=== PATIENT | male | born 1960 | race African-American/Black ===

== ENCOUNTER 2021-10-14 01:42 | Inpatient (IN) | payer OTHER, SELFPAY ==
[2021-10-14] VITALS (24 sets, daily range): BP systolic 138–207; BP diastolic 85–136; PULSE 10–106; RESP 16–22; TEMP 36.3–36.9; O2SAT 63–100; BMI 29.7; BMI 30.8
--- NOTE | ~2021-10-14 | CT_ITS ---
EXAMINATION: CT brain wo con EXAM DATE: 10/14/2021 02:38 INDICATION: altered mental status . TECHNIQUE: Spiral CT of the head was performed without contrast. Axial, coronal and sagittal images were reviewed. The dose-length product (DLP) for this examination was 681.00 mGy-cm. The exposure w as tailored according to patient size, and iterative reconstruction (ASIR) was used as additional dos e reduction technique. There is no prior study for comparison. FINDINGS: There is no acute intraparenchymal hemorrhage. No evidence of intraparenchymal brain mass lesion. Small old left frontal lobe cortical infarction. Small old right parietal lobe infarction. T here is hypodensity in the right caudate head, internal capsule, age indeterminate lacunar infarction . Small old left internal capsular lacunar infarction. There is moderate periventricular and subcort ical hypodensity, nonspecific but probably related to small vessel ischemic disease. There is moder ate prominence of the sulci and ventricles related to cerebral atrophy. There is intracranial carot id arteriosclerosis. There are no extra-axial collections. There is no mass effect or midline shift . The orbits are unremarkable. Soft tissue is unremarkable. The visualized sinuses and mastoid air cells are well aerated. IMPRESSION: 1. Right caudate head, internal capsular age-indeterminate infarction. 2. Small old infarctions. 3. Chronic age related findings. Reviewed, dictated and finalized at location A. OYMENT COUNSELOR
--- NOTE | ~2021-10-14 | US_ITS ---
EXAMINATION: US carotid duplex BI DATE: 10/14/2021 08:56 INDICATION: Right caudate nucleus infarct. TECHNIQUE: Grayscale, color Doppler, and pulsed Doppler images of the cervical carotid arteries were obtained. The degree of vessel stenosis is placed in one of the following categories: normal, <50%, 5 0-69%, >=70% but less than near-occlusion, near-occlusion, or total occlusion. Note that percent sten osis relative to normal distal artery lumen diameter is indirectly measured from velocity measurement s as described by Levi, et al. Radiology 2003; 229:340-346. COMPARISON: None. FINDINGS: RIGHT: The right common carotid artery (CCA) peak systolic velocity (PSV) is 86 cm/s. The right internal car otid artery (ICA) PSV is 63 cm/s. The right ICA end-diastolic velocity (EDV) is 25 cm/s. The right IC A/CCA PSV ratio is 0.7. Grayscale and color Doppler images yield an estimate of <50% diameter reducti on from plaque in the ICA. There is antegrade flow in the right vertebral artery. LEFT: The left CCA PSV is 108 cm/s. The left ICA PSV is 85 cm/s. The left ICA EDV is 29 cm/s. The left ICA/ CCA PSV ratio is 0.8. Grayscale and color Doppler images yield an estimate of <50% diameter reduction from plaque in the ICA. There is antegrade flow in the left vertebral artery. IMPRESSION: 1. <50% stenosis in the right internal carotid artery. 2. <50% stenosis in the left internal carotid artery. Reviewed, dictated and finalized at location A. [employer]
--- NOTE | ~2021-10-14 | MR_ITS ---
EXAMINATION: MR brain/brain stem wo/w con EXAM DATE: 10/14/2021 14:12 INDICATION: altered mental status, hx of stroke. TECHNIQUE: Magnetic resonance imaging (MRI) of the brain/brain stem obtained without contrast. Sagit catalina T1, axial diffusion, gradient echo (T2*), T1, T2, FLAIR sequences obtained. Patient was then inj ected with 17 cc intravenous Multihance contrast. Axial and coronal postcontrast T1 weighted sequence s obtained. Correlation is made to head CT from earlier same date. FINDINGS: Small to moderate-sized acute left frontal lobe infarction with some other scattered smalle r middle cerebral artery distribution infarctions. No infarctions in other distributions. There is an old right parietal lobe infarction. Mild to moderate microangiopathy and cerebral atrophy. No acute hemorrhage, extra-axial collections, brain mass or obstructive hydrocephalus. Small old right caudate head, internal capsular lacunar infarction. Flow voids are seen in the cerebral arteries on the T2 w eighted sequences consistent with their expected patency. Mild maxillary and ethmoid mucoperiosteal t hickening. IMPRESSION: 1. Left frontal lobe small to moderate sized acute infarction with some other scattered smaller MCA distribution acute infarctions. 2. Old small infarctions. 3. Age-related findings. Reviewed, dictated and finalized at location A. OL STANDARDS COACH
--- NOTE | ~2021-10-14 | XR_ITS ---
EXAMINATION: XR chest 1V portable EXAM DATE: 10/14/2021 02:39 INDICATION: cough, patient not acting like self x5 days not taking meds. TECHNIQUE: Portable AP frontal chest x-ray was obtained. There is no prior study for comparison. FINDINGS: The lungs are clear. There are no pleural effusions. Cardiomediastinal silhouette is norm al. There is no pneumothorax suspected. The bones and soft tissues are unremarkable. IMPRESSION: No acute cardiopulmonary findings. Reviewed, dictated and finalized at location A. ALL PROFESSIONAL
--- NOTE | 2021-10-14 02:08 | PC.NURSE ---
son reports he drinks every day but has not drank anything today
--- NOTE | 2021-10-14 02:21 | ECG_ITS ---
Measurements Intervals [place] Rate: 76 P: 38 WI: 136 QRS: -3 QRSD: 97 T: 30 QT: 388 QTc: 437 Interpretive Statements SINUS RHYTHM VOLTAGE CRITERIA FOR LVH PEAKED T WAVES- CONSIDER HYPERKALEMIA OR ISCHEMIA BASELINE ARTIFACT- II, V2-V6 ABNORMAL ECG Electronically Signed On 10-14-2021 6:52:37 PROJECT CONTROLS SPECIALIST by Glenn Francois D.O.
--- NOTE | 2021-10-14 02:27 | PC.NURSE ---
pt to ct
[2021-10-14] MEDS: SODIUM CHLORIDE 0.9% IV 1,000 ML 999 ML IV CONT (02:57)
[2021-10-14 03:05] LABS: Basophils Percent Auto 0.6 % (0.2-1.2); Eosinophils Absolute Auto 0.1 K/mm3 (0-0.3); Hematocrit 47.5 % (42.0-52.0); Hemoglobin 16.1 g/dL (14.0-18.0); Immature Granulocyte Absolute 0.05 K/mm3 (0.00-0.031); Immature Granulocyte Percent A 0.7 % (0-0.5); Lymphocytes Absolute Auto 1.84 K/mm3 (0.9-3.2); Lymphocytes Percent Auto 26.1 % (18.3-44.2); Mean Corpuscular HGB Conc 33.9 g/dl (32-36); Mean Corpuscular Hemoglobin 32.4 pg (26-34); Mean Corpuscular Volume 95.6 fl (80-100); Mean Platelet Volume 10.8 fl (7.4-10.4); Monocytes Absolute Auto 0.8 K/mm3 (0.1-0.6); Monocytes Percent Auto 11.1 % (2.6-8.5); Neutrophils Absolute Auto 4.2 K/mm3 (1.3-6.7); Neutrophils Percent Auto 59.5 % (45.5-73.1); Platelet Count Result 167 k/mm3 (150-375); Red Blood Count 4.97 M/mm3 (4.6-6.20); Red Cell Distribution Width 12.5 % (11.5-14.5)
[2021-10-14 03:11] LABS: Add Urine Microscopic? YES; Appearance Urine Clear (Clear); Bilirubin Urine Negative (Negative); Blood Urine Negative (Negative); Color Urine Yellow (Yellow); Glucose Urine UA Negative (Negative); Ketones Urine Trace mg/dL (Negative); Leukocyte Esterase Ur Trace LEU/UL (Negative); Mucus Urine Rare /lpf; Nitrate Urine Negative (Negative); Protein Urine Negative (Negative); RBC Urine 0-2 /hpf (0-2); Specific Grav Ur 1.023 (1.001-1.035)
[2021-10-14 03:15] LABS: Alanine Aminotransferase 14 U/L (4-50); Albumin Level 4.4 g/dL (3.5-5.1); Alkaline Phosphatase 60 U/L (38-126); Anion Gap 9 mmol/L (8-16); Aspartate Amino Transferase 21 U/L (17-59); Blood Urea Nitrogen 13 mg/dL (9-20); Calcium 9.7 mg/dL (8.4-10.2); Carbon Dioxide 26 mmol/L (22-30); Chloride 100 mmol/L (98-107); Estimated CRCL calculation 66 ml/min; Estimated Glomerular Filt Rate > 60; Glucose 106 mg/dL (65-110); Lactic Acid Reflex 2.1 mmol/L (0.7-2.1); Lipase 45 U/L (23-300); Prothrombin Time 12.7 Seconds (11.1-14.7); Sodium 135 mmol/L (137-145)
[2021-10-14 03:38] LABS: Ethanol < 10 mg/dL (<10); NT Pro B Type Natriuretic Pept 263 pg/mL (5-100); Troponin I < 0.012 ng/mL (0.000-0.034)
[2021-10-14 03:42] LABS: SARS-CoV-2 RNA PCR Positive
[2021-10-14 03:44] LABS: Amphetamine Screen Urine Negative (Negative); Barbiturate Screen Urine Negative (Negative); Benzodiazepines Screen Urine Negative (Negative); Cannabinoid Screen Urine Negative (Negative); Cocaine Screen Urine Negative (Negative); Methadone Screen Urine Negative (Negative); Opiate Screen Urine Negative (Negative); Phencyclidine Screen Urine Negative (Negative)
[2021-10-14] MEDS: hydrALAZINE HCL 20 MG/ML VIAL 10 MG IV PUSH (03:51)
--- NOTE | 2021-10-14 04:33 | ED.GENADULT ---
HPI - General Adult General Chief complaint: Unspecified Stated complaint: wants blood levels checked Time Seen by Provider: 10/14/21 02:05 History of Present Illness HPI narrative: Patient is a 61-year-old gentleman who presents the emergency department with chief complaint of altered mental status. Patient has history of hypertension and has been living with a friend since he lost his house a few months ago. Patient has been apparently noncompliant with his medications and does report history of stroke. Patient really is not able to provide much history due to not remembering things. Patient denies any pain denies falls reports that he has not had a fever chills nausea or vomiting or chest pain. The family reports that they feel as though he is not taking care of himself and they're very concerned for his wellbeing and brought him to the emergency department tonight. The family does not have a list of his medications they're unsure where he receives his primary care at. Related Data Allergies Allergy/AdvReac Type Severity Reaction Status Date / Time No Known Allergies Allergy Verified 10/14/21 01:50 Review of Systems Review of Systems: A 10 system review of systems was completed on the patient and is negative except for what is stated in the HPI. Nursing and ancillary documentation was reviewed. PMFSH Comments Hypertension, CVA Exam Narrative: GENERAL: Well-appearing, well-nourished, and in no acute distress. HEAD: Normocephalic, atraumatic. EYES: PERRLA and EOMI. ENT: Nares clear, no rhinorrhea or epistaxis. Mucous membranes moist. NECK: Supple. CHEST: Clear to auscultation. No respiratory distress. HEART: Regular rate and rhythm. No murmur heard. Normal peripheral pulses. ABDOMEN: Soft, nontender, nondistended, normal active bowel sounds. EXTREMITIES: Normal range of motion. No edema. SKIN: Warm, dry, no rash. NEURO: No focal deficits. Alert and oriented x2, somewhat confused. PSYCH: Normal mood and affect. Course Course Emergency Course: CT head shows age-indeterminate hypodensity in the right caudate head also there is left frontal lobe encephalomalacia Laboratory studies showed the patient was positive for COVID-19 also his blood pressure was moderately elevated the patient has been given hydralazine in the emergency department to help regulate his blood pressure. Vital Signs Vital signs: Vital Signs Temperature 36.4 C 10/14/21 01:45 Pulse Rate 77 10/14/21 01:45 Respiratory Rate 18 10/14/21 01:45 Blood Pressure 196/101 H 10/14/21 01:45 Pulse Oximetry 100 10/14/21 01:45 Temperature 36.4 C 10/14/21 01:45 Pulse Rate 84 10/14/21 03:50 Respiratory Rate 20 10/14/21 03:50 Blood Pressure 207/135 H 10/14/21 03:50 Pulse Oximetry 95 10/14/21 03:28 Medical Decision Making Vital Signs Vital Signs: Vital Signs Temperature 36.4 C 10/14/21 01:45 Pulse Rate 77 10/14/21 01:45 Respiratory Rate 18 10/14/21 01:45 Blood Pressure 196/101 H 10/14/21 01:45 Pulse Oximetry 100 10/14/21 01:45 Temperature 36.4 C 10/14/21 01:45 Pulse Rate 84 10/14/21 03:50 Respiratory Rate 20 10/14/21 03:50 Blood Pressure 207/135 H 10/14/21 03:50 Pulse Oximetry 95 10/14/21 03:28 Lab Data Result diagrams: 10/14/21 02:53 10/14/21 02:53 Labs: Lab Results 10/14/21 10/14/21 10/14/21 Range/Units 02:53 02:53 02:53 WBC 7.0 (4.5-10.0) K/mm3 RBC 4.97 (4.6-6.20) M/mm3 Hgb 16.1 (14.0-18.0) g/dL Hct 47.5 (42.0-52.0) % MCV 95.6 (80-100) fl MCH 32.4 (26-34) pg MCHC 33.9 (32-36) g/dl RDW 12.5 (11.5-14.5) % Plt Count 167 (150-375) k/mm3 MPV 10.8 H (7.4-10.4) fl Immature Gran % (Auto) 0.7 H (0-0.5) % Neut % (Auto) 59.5 (45.5-73.1) % Lymph % (Auto) 26.1 (18.3-44.2) % Cocke % (Auto) 11.1 H (2.6-8.5) % Eos % (Auto) 2.0 (0-4.4) % Baso % (Auto) 0.6 (0.2-1.2) % Lymph # (
[2021-10-14] MEDS: hydrALAZINE HCL 20 MG/ML VIAL IV PUSH (05:05)
[2021-10-14 06:02] LABS: Reflex Lactic Acid Yes or No Add Lactic
[2021-10-14 06:48] LABS: Troponin I < 0.012 ng/mL (0.000-0.034)
[2021-10-14 07:58] LABS: Lactic Acid 1.5 mmol/L (0.7-2.1)
--- NOTE | 2021-10-14 08:40 | PC.NURSE ---
UNABLE TO REACH PT'S SON CALVIN DAMON JR FOR MRI SCREENING QUESTIONS. DEMARCUS DEVLIN HOSPITALIST MADE AWARE AND WILL ATTEMPT TO MAKE SOME CALLS.
--- NOTE | 2021-10-14 09:16 | PM.IMHP ---
H&P: HPI History of Present Illness Date/Time: 10/14/21 09:16 Chief Complaint: AMS Narrative: Date of service: 10/14/2021 Jean Pierre Fitch Sr is a 61-year-old male with no obtainable medical history who presented to the emergency department early this morning brought in by his sister who states that he had not been acting right and had increased confusion for the past 5 days. On my encounter the patient is alone and not really able to provide any history. When I assumed brought him into the hospital he stated ?my body was struck by something.? When I asked what he was struck by he responded ?yeah.? He is oriented to self only. Reports he is at [facility], states the year is 1986 and [place] is the president. On presentation to the emergency department, his blood pressure was elevated at 196/100, additional vital signs are stable, CBC and BMP unremarkable, urine drug screen negative, alcohol level negative, and he was found to be positive for COVID-19. I have attempted to contact the patients family for further information regarding the patient's past medical history and baseline mental status several times. Contact number listed does not accept messages. Will continue to attempt to make contact. Patient is being admitted to the hospitalist service for observation. Supervising physician for this history and physical is Dr. John Noyola. Review of Systems Review of Systems: Review of systems limited given patient's mental status. He denies chest pain, shortness of, abdominal pain, nausea, vomiting, weakness, fever, chills, dysuria. He reports he walks independently and has not had any issues with ambulation. [facility] Social History Social History (Updated 10/14/21 @ 10:33 by Barbara Sanz PA-C) Social History: Patient unable to state emergency contact or surrogate decision maker. Wishes to be full code. Meds Home Medications and Allergies Allergies Allergy/AdvReac Type Severity Reaction Status Date / Time No Known Allergies Allergy Verified 10/14/21 01:50 Vital Signs Vital Signs - 24 hr 10/14/21 01:45 10/14/21 02:04 10/14/21 02:09 Temperature 97.6 F Pulse Rate 77 85 10 L Respiratory Rate 18 18 18 Blood Pressure 196/101 H 197/125 H 197/125 H Pulse Oximetry 100 100 100 10/14/21 03:05 10/14/21 03:06 10/14/21 03:28 Temperature Pulse Rate 81 81 Respiratory Rate 16 Blood Pressure 202/117 H Pulse Oximetry 95 10/14/21 03:50 10/14/21 05:04 10/14/21 05:54 Temperature Pulse Rate 84 93 101 H Respiratory Rate 20 22 H 20 Blood Pressure 207/135 H 197/136 H 172/100 H Pulse Oximetry 100 100 10/14/21 07:01 Temperature Pulse Rate 106 H Respiratory Rate 20 Blood Pressure 177/98 H Pulse Oximetry 100 Exam Narrative: Mr. Fitch is a well-nourished, chronically ill-appearing 61-year-old male who is lying supine in bed. He appears comfortable and is in NARD. Neuro: awake, alert and oriented to self only, speech is soft but clear, no focal neuro deficits noted, able to follow commands HEENMT: normocephalic, atraumatic, EOMI, bilateral scleral hemorrhage Neck: supple, no lymphadenopathy Respiratory: clear to auscultation bilaterally, nonlabored breathing Cardio: regular rate, regular rhythm with S1-S2 Abdomen: nondistended, normoactive bowel sounds, soft, nontender to palpation Extremities: no edema, erythema, or tenderness to palpation, DP pulses 2+ bilaterally Skin: no rashes or lesions, warm and dry Psych: Cooperative, confused, judgment and insight poor H&P: Results Labs Labs: Short CBC 10/14/21 Range/Units 02:53 WBC 7.0 (4.5-10.0) K/mm3 Hgb 16.1 (14.0-18.0) g/dL Hct 47.5 (42.0-52.0) % Plt Count 167 (150-375) k/mm3 [facility] 10/14/21 02:53 Sodium 135 L Potassium 5.0 Chloride 100 Carbon Dioxide 26 BUN 13 Creatinine 1.10 Glucose 106 Calcium 9.7 Cardiac Enzymes 10/14/21 10/14/21 Range/Units 02:53 06:07
[2021-10-14] MEDS: amLODIPine BESYLATE 5 MG TABLET PO (12:11)
[2021-10-14] MEDS: FAMOTIDINE 20 MG TABLET PO ×2 (12:11→21:13)
--- NOTE | 2021-10-14 13:29 | PC.NURSE ---
PT TO MRI FOR EXAM. QUESTIONNAIRE CONSENT WAS OBTAINED BY PHONE FROM CALVIN DAMON JR WITH 2 RN'S COSIGNING THE FORM.
[2021-10-15] VITALS (8 sets, daily range): BP systolic 121–143; BP diastolic 72–84; PULSE 63–92; RESP 16–20; TEMP 36.1–37; O2SAT 100
[2021-10-15 05:27] LABS: Hematocrit 43.7 % (42.0-52.0); Hemoglobin 15.2 g/dL (14.0-18.0); Mean Corpuscular HGB Conc 34.8 g/dl (32-36); Mean Corpuscular Hemoglobin 32.3 pg (26-34); Mean Corpuscular Volume 92.8 fl (80-100); Mean Platelet Volume 11.4 fl (7.4-10.4); Platelet Count Result 173 k/mm3 (150-375); Red Blood Count 4.71 M/mm3 (4.6-6.20); Red Cell Distribution Width 12.3 % (11.5-14.5)
[2021-10-15 05:47] LABS: Alanine Aminotransferase 12 U/L (4-50); Albumin Level 3.5 g/dL (3.5-5.1); Alkaline Phosphatase 41 U/L (38-126); Anion Gap 6 mmol/L (8-16); Aspartate Amino Transferase 22 U/L (17-59); Bilirubin,Total 0.9 mg/dL (0.2-1.3); Blood Urea Nitrogen 12 mg/dL (9-20); CRP 0.7 mg/dL (<1.0); Calcium 8.6 mg/dL (8.4-10.2); Carbon Dioxide 21 mmol/L (22-30); Chloride 105 mmol/L (98-107); Estimated CRCL calculation 73 ml/min; Estimated Glomerular Filt Rate > 60; Glucose 121 mg/dL (65-110); Potassium 3.7 mmol/L (3.4-5.0); Sodium 132 mmol/L (137-145)
--- NOTE | 2021-10-15 06:00 | ECHO_ITS ---
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 Strain analysis performed. Summary 1. Complete two-dimensional, color flow and Doppler transthoracic echocardiogram is performed. 2. Left ventricular chamber dimension is normal. 3. Left ventricular systolic function is normal, estimated at 60-65%. 4. There is moderately increased left ventricular wall thickness. 5. The left ventricular diastolic function is grade I diastolic dysfunction. 6. E/e' 7 is not elevated. 7. Global longitudinal strain is abnormal at -10.2%. Left Ventricle E/e' 7 is not elevated. Global longitudinal strain is abnormal at -10.2%. Left ventricular chamber dimension is normal. Left ventricular systolic function is normal, estimated at 60-65%. There is moderately increased left ventricular wall thickness. The left ventricular diastolic function is grade I diastolic dysfunction. Right Ventricle Right ventricular systolic function is normal with normal TAPSE 2.1 cm. Right ventricular chamber dimension is normal. Left Atria Left atrial chamber dimension is normal. Right Atria Right atrial chamber dimension is normal. Aortic Valve The aortic valve is trileaflet. There is no aortic valve stenosis. There is no aortic valve regurgitation. Pulmonic Valve There is no pulmonic regurgitation. Mitral Valve There is no mitral valve stenosis. There is no mitral valve regurgitation. Tricuspid Valve There is no tricuspid valve regurgitation. Pericardium/Pleural There is no pericardial effusion. Inferior Vena Cava Normal inferior vena cava with >50% collapse upon inspiration consistent with normal right atrial pressure, 5 mmHg. Aorta The aortic root size at the sinus of Valsalva is normal. Left Ventricular Outflow Tract Name Value Normal LVOT 2D LVOT Diameter 2.2 cm LVOT Doppler LVOT Peak Gradient 6 mmHg LVOT Mean Gradient 3 mmHg LVOT VTI 21 cm LVOT VTI/AV VTI Ratio 1.0 LVOT Stroke Volume 83 ml LVOT CO 6.7 l/min LVOT CI 3.3 l/min/m2 Mitral Valve Name Value Normal MV Doppler
[2021-10-15] MEDS: ASPIRIN 325 MG TABLET PO (09:18)
[2021-10-15] MEDS: FAMOTIDINE 20 MG TABLET PO ×2 (09:18→21:12)
[2021-10-15] MEDS: amLODIPine BESYLATE 5 MG TABLET 10 MG PO (09:18)
--- NOTE | 2021-10-15 09:55 | WPDNEURCNPN ---
Consult date: 10/15/21 HPI: Jean Pierre Fitch Sr. is a 61 year old male admitted to the hospital through the emergency room for the complaints of not acting right and increasing confusion over the last 5 days and specific statement by the patient to the initial physician my body was struck by something he was oriented to self only was oriented to 2 [facility] and 1984 year and the [place] being the president blood pressure being 196/100 routine screening was negative but positive for COVID-19 Review of Systems Review of Systems: All systems reviewed & are unremarkable except as noted in HPI and below PMFSH Social History Social History Social History: Patient unable to state emergency contact or surrogate decision maker. Wishes to be full code. Smoking packs per day: 2 Smoking cigarettes per day: 40.0 Years smoked: 45 Smoking pack-years: 90.00 Smoking status: Current every day smoker Tobacco type: cigarettes Alcohol intake: current Drinks per week: 21 Substance use: current Substance use type: marijuana Spiritual care concerns: No Meds Home Medications and Allergies Home Medications Medication Instructions Recorded Confirmed Type No Home Medications 10/14/21 10/14/21 History Allergies Allergy/AdvReac Type Severity Reaction Status Date / Time No Known Allergies Allergy Verified 10/14/21 01:50 Vital Signs Vital Signs - 24 hr 10/14/21 11:00 10/14/21 12:56 10/14/21 13:40 Temperature Pulse Rate 76 79 80 Respiratory Rate 20 18 16 Blood Pressure 145/98 H 169/111 H 169/102 H Pulse Oximetry 98 100 100 10/14/21 14:30 10/14/21 16:00 10/14/21 18:00 Temperature 36.3 C L 36.8 C Pulse Rate 82 71 76 Respiratory Rate 20 18 Blood Pressure 167/108 H 181/103 H Pulse Oximetry 100 100 10/14/21 20:00 10/14/21 22:00 10/15/21 00:00 Temperature 36.9 C 36.1 C L Pulse Rate 72 76 73 Respiratory Rate 18 16 Blood Pressure 138/85 143/84 H Pulse Oximetry 100 100 10/15/21 02:00 10/15/21 04:00 10/15/21 06:00 Temperature 36.1 C L Pulse Rate 72 67 66 Respiratory Rate 18 Blood Pressure 122/84 Pulse Oximetry 100 01/28/22 08:00 Temperature 37.0 C Pulse Rate 72 Respiratory Rate 18 Blood Pressure 138/84 Pulse Oximetry 100 Results Labs CBC & Chem 7: 10/15/21 04:42 10/15/21 04:42 Labs: Short CBC 10/15/21 Range/Units 04:42 WBC 7.0 (4.5-10.0) K/mm3 Hgb 15.2 (14.0-18.0) g/dL Hct 43.7 (42.0-52.0) % Plt Count 173 (150-375) k/mm3 [facility] 10/15/21 04:42 Sodium 132 L Potassium 3.7 Chloride 105 Carbon Dioxide 21 L BUN 12 Creatinine 1.00 Glucose 121 H Calcium 8.6 Liver Function 10/15/21 Range/Units 04:42 Total Bilirubin 0.9 (0.2-1.3) mg/dL AST 22 (17-59) U/L ALT 12 (4-50) U/L Alkaline Phosphatase 41 (38-126) U/L Albumin 3.5 (3.5-5.1) g/dL Quality VTE Prophylaxis VTE prophylaxis: mechanical ordered
--- NOTE | 2021-10-15 11:26 | WPDNEURCNPN ---
Assessment and Plan Additional Plan 1. COVID with encephalopathy 2. CT head with no bleed but documentation of left frontal lobe encephalomalacia and right caudate hypodensity 3. History of hypertension 4. MRI is pending for further delineation of his neurological problem 5. Will obtain the EEG when he is stable also by that time MRI of would have been done Consult date: 10/15/21 HPI: Jean Pierre Fitch Sr. is a 61 year old male admitted to the hospital through the emergency room for the complaints of not acting right and increasing confusion over the last 5 days with specific statement by the patient to the initial physician that my body was struck by something. He was oriented to self only was oriented to the hospital and 1987 and cleaned his blood pressure was 196/100 and his routine blood studies were negative but he was positive for COVID 19 Review of Systems Review of Systems: All systems reviewed & are unremarkable except as noted in HPI and below PMFSH Social History Social History Social History: Patient unable to state emergency contact or surrogate decision maker. Wishes to be full code. Smoking packs per day: 2 Smoking cigarettes per day: 40.0 Years smoked: 45 Smoking pack-years: 90.00 Smoking status: Current every day smoker Tobacco type: cigarettes Alcohol intake: current Drinks per week: 21 Substance use: current Substance use type: marijuana Spiritual care concerns: No Meds Home Medications and Allergies Home Medications Medication Instructions Recorded Confirmed Type No Home Medications 10/14/21 10/14/21 History Allergies Allergy/AdvReac Type Severity Reaction Status Date / Time No Known Allergies Allergy Verified 10/14/21 01:50 Vital Signs Vital Signs - 24 hr 10/14/21 12:56 10/14/21 13:40 10/14/21 14:30 Temperature 36.3 C L Pulse Rate 79 80 82 Respiratory Rate 18 16 20 Blood Pressure 169/111 H 169/102 H 167/108 H Pulse Oximetry 100 100 100 10/14/21 16:00 10/14/21 18:00 10/14/21 20:00 Temperature 36.8 C 36.9 C Pulse Rate 71 76 72 Respiratory Rate 18 18 Blood Pressure 181/103 H 138/85 Pulse Oximetry 100 100 10/14/21 22:00 10/15/21 00:00 10/15/21 02:00 Temperature 36.1 C L Pulse Rate 76 73 72 Respiratory Rate 16 Blood Pressure 143/84 H Pulse Oximetry 100 10/15/21 04:00 10/15/21 06:00 10/15/21 08:00 Temperature 36.1 C L 37.0 C Pulse Rate 67 66 72 Respiratory Rate 18 18 Blood Pressure 122/84 138/84 Pulse Oximetry 100 100 10/15/21 10:00 Temperature Pulse Rate 92 Respiratory Rate Blood Pressure Pulse Oximetry Exam Narrative: revealed him to be awake alert cooperative, head normocephalic with no cranial bruit neck is supple with no cervical bruit no thyromegaly no lymphadenopathy heart regular with no murmur, lungs clear with no rhonchi, abdomen is soft nontender with normal bowel sounds, his skin normal, neurological examination revealed him to be awake alert cooperative in no obvious acute distress his speech nor dysphasic no dysarthric not dysphonic pupils round regular feels the vision full extraocular movements full face symmetrical tongue midline motor examination revealed him to have no drift of one-sided other side reflexes are sluggish plantars are downgoing had decreased sensation distally in both lower extremities and also he has ataxia and dysmetria on [id number]-finger bilaterally Results Labs CBC & Chem 7: 10/15/21 04:42 10/15/21 04:42 Labs: Short CBC 10/15/21 Range/Units 04:42 WBC 7.0 (4.5-10.0) K/mm3 Hgb 15.2 (14.0-18.0) g/dL Hct 43.7 (42.0-52.0) % Plt Count 173 (150-375) k/mm3 BMP 10/15/21 04:42 Sodium 132 L Potassium 3.7 Chloride 105 Carbon Dioxide 21 L BUN 12 Creatinine 1.00 Glucose 121 H Calcium 8.6 Liver Function 10/15/21 Range/Units 04:42 To
--- NOTE | 2021-10-15 11:45 | ECG_ITS ---
Measurements Intervals [place] Rate: 78 P: 52 IA: 140 QRS: 2 QRSD: 89 T: 38 QT: 389 QTc: 445 Interpretive Statements SINUS RHYTHM BASELINE ARTIFACT- V4 NORMAL ECG Electronically Signed On 10-15-2021 12:42:08 BACKEND TESTER by Glenn Francois D.O.
--- NOTE | 2021-10-15 15:03 | PM.IMPN ---
Progress Note: A&P Assessment and Plan (1) COVID-19: Code(s): U07.1 - COVID-19 Status: Acute Assessment and Plan: Positive COVID test on 10/14/2021. No evidence of pneumonia on CXR Continue isolation precautions No oxygen requirements. Not a candidate for dexamethasone or remdesivir Supportive care. Vaccination status unknown. clear lung auscultation today, no coughing noted. Denies chest pain/pressure or SOB (2) Altered mental status: Qualifiers: Altered mental status type: unspecified Qualified Code(s): R41.82 - Altered mental status, unspecified Code(s): R41.82 - Altered mental status, unspecified Status: Acute Assessment and Plan: Patient is oriented x1-2 today. His baseline unknown and medical history is unobtainable. ER documentation notes family reported history of stroke Head CT shows age indeterminate infarct of right caudate head with small old infarct. MRI showed small old infarcts and Left frontal lobe small to moderate sized acute infarction with some other scattered smaller MCA distribution acute infarctions. Carotid doppler with <50% stenosis bilaterally Echocardiogram : LV chamber dimension is normal.EF 60-65%.moderately increased left ventricular wall thickness.LV diastolic function is grade I diastolic dysfunction.no aortic valve stenosis or regurgitation.no pulmonic regurgitation. no mitral valve stenosis or regurgitation.no tricuspid valve regurgitation.no pericardial effusion. Urine drug screen negative. Alcohol level negative. Checking ABG, HIV, hepatitis, Ferritin, vit D,lipids, TSH, ammonia, B12, folate levels today Appreciate neurology consult. EEG ordered. librium PRN, no s/s of DTs. fall /aspiration precautions (3) Hypertension: Qualifiers: Hypertension type: unspecified Qualified Code(s): I10 - Essential (primary) hypertension Code(s): I10 - Essential (primary) hypertension Status: Acute Assessment and Plan: Blood pressure has been elevated up to 200s systolic. ER documentation notes noncompliance with medication regimen. Suspect he has been off antihypertensives Started on Norvasc 5 mg daily and monitor BP trends BPs 122/84 with HR 72-82 today. Controlled Additional Plan 1. COVID with encephalopathy 2. CT head with no bleed but documentation of left frontal lobe encephalomalacia and right caudate hypodensity 3. History of hypertension 4. MRI is pending for further delineation of his neurological problem 5. Will obtain the EEG when he is stable also by that time MRI of would have been done Subjective Date/time seen: 10/15/21 15:03 Jean Pierre was a pleasant man to meet with today. He answered all of my questions and was cooperative, following all my commands. He answered and gave me his correct birthday. But for today's date, he thought the year was 193 and that Bradley was the current president. When I tried to get him to realize that today could not be because his birthday was in the 60s and that he was 61, he had a blank expression, no response and could offer no further discussion on the topic. He did admit that he preferred Madeline light for his drinking beer, and may drink a case a day. He also stated that he preferred Absolute alcohol for hard liquor. He stated that he liked to drink at home, and denied preference for drinking in a bar. He does not have any anxiety or agitation during my exam. He was not irritable, did not have tachypnea, did not have tachycardia -no signs of withdrawal of any sort. Review of Systems Review of Systems: All systems reviewed & are unremarkable except as noted in HPI and below Constitutional: Constitutional: Denies excessive sweating, Denies headache(s), Denies increased appetite, Denies snoring and Denies weight gain Eyes: Eyes: Denies exophthalmos, Denies diplopia, Denies floaters and Denies loss of peripheral vision ENT: Cad[facility]
[2021-10-15 16:41] LABS: Base Excess ABG -1.4 mEq/l (+/-2.0); Fractional Inspired Oxygen 21 %; HCO3 ABG 20.7 mEq/l (22.0-26.0); Oxygen Content ABG 22.5 %vol (16.0-22.0); Oxygen Saturation ABG 98.7 % (95.0-100.0); Oxyhemoglobin 97.4 % THb (90.0-100.0); PCO2 ABG 28.7 mmHg (35.0-45.0); PO2 ABG 121.8 mmHg (80.0-100.0); Total Hemoglobin 16.3 g/dL (12.0-18.0); pH ABG 7.475 (7.350-7.450)
[2021-10-15 16:42] LABS: Device ROOM AIR; Modified Allen's Test Pass; Site Drawn LEFT RADIAL
--- NOTE | 2021-10-15 18:38 | PC.NURSE ---
This patient, Jean Pierre Fitch , was received from [[facility] ] on 10/15/21 at 1838. Patient oriented to unit policies and routines. Report received from ELLEN Diop.
[2021-10-15 22:23] LABS: Ammonia < 9 umol/L (9-30)
[2021-10-15 22:25] LABS: Cholesterol 160 mg/dL (0-200); HDL Direct 30 mg/dL; Lactate Dehydrogenase 283 U/L (313-618); Triglycerides 79 mg/dL (<150)
[2021-10-15 22:36] LABS: LDL Cholesterol Direct 109 mg/dL
[2021-10-15 22:44] LABS: Hemoglobin A1C 5.2 % (<5.7)
[2021-10-15 23:46] LABS: HIV 1/2 Ab P24 Ag Result Negative (Negative)
[2021-10-15 23:50] LABS: Hepatitis B Surface Antigen Negative (Negative)
[2021-10-15 23:56] LABS: HAV RESULT Negative (Negative); Hepatitis B Core IgM Result Negative (Negative)
[2021-10-16] VITALS: BP 123/74; PULSE 78; RESP 20; TEMP 36.4; O2SAT 100
[2021-10-16 00:07] LABS: Hepatitis C Virus Antibody Negative (Negative)
[2021-10-16 04:31] VITALS: BP 124/71; PULSE 74; RESP 20; TEMP 36.2; O2SAT 100
[2021-10-16] MEDS: amLODIPine BESYLATE 5 MG TABLET 10 MG PO (08:39)
[2021-10-16] MEDS: ASPIRIN 325 MG TABLET PO (08:40)
[2021-10-16] MEDS: FAMOTIDINE 20 MG TABLET PO ×2 (08:40→21:22)
--- NOTE | 2021-10-16 10:20 | PM.IMPN ---
Progress Note: A&P Assessment and Plan (1) COVID-19: Code(s): U07.1 - COVID-19 Status: Acute Assessment and Plan: Positive COVID test on 10/14/2021 No evidence of pneumonia on CXR Continue isolation precautions No oxygen requirements. Not a candidate for dexamethasone or remdesivir Supportive care Unvaccinated (2) Altered mental status: Qualifiers: Altered mental status type: unspecified Qualified Code(s): R41.82 - Altered mental status, unspecified Code(s): R41.82 - Altered mental status, unspecified Status: Acute Assessment and Plan: His baseline unknown and medical history unobtainable on admission. ER documentation notes family reported history of stroke Head CT shows age indeterminate infarct of right caudate head with small old infarct MRI showed small old infarcts and Left frontal lobe small to moderate sized acute infarction with some other scattered smaller MCA distribution acute infarctions. Carotid doppler with <50% stenosis bilaterally Echocardiogram : LV chamber dimension is normal.EF 60-65%.moderately increased left ventricular wall thickness.LV diastolic function is grade I diastolic dysfunction.no aortic valve stenosis or regurgitation.no pulmonic regurgitation. no mitral valve stenosis or regurgitation.no tricuspid valve regurgitation.no pericardial effusion. Urine drug screen negative. Alcohol level negative. Checking ABG, HIV, hepatitis, Ferritin, vit D,lipids, TSH, ammonia, B12, folate levels today Appreciate neurology consult. EEG ordered Librium PRN, no s/s of DTs fall /aspiration precautions (3) Hypertension: Qualifiers: Hypertension type: unspecified Qualified Code(s): I10 - Essential (primary) hypertension Code(s): I10 - Essential (primary) hypertension Status: Acute Assessment and Plan: Stable Blood pressure has been elevated up to 200s systolic on admission ER documentation notes noncompliance with medication regimen. Suspect he has been off antihypertensives Continue Norvasc 5 mg daily Monitor (4) CVA (cerebral vascular accident): Code(s): I63.9 - Cerebral infarction, unspecified Status: Acute Assessment and Plan: Head CT shows age indeterminate infarct of right caudate head with small old infarct MRI showed small old infarcts and Left frontal lobe small to moderate sized acute infarction with some other scattered smaller MCA distribution acute infarctions Continue full dose ASA Statin initiated PT/OT Additional Plan Code status: FULL DVT Ppx: Subjective Date/time seen: 10/16/21 10:20 Interval history: Pt seen and evaluated; labs, vs, diagnostic results reviewed; pt mental status improving; still does not reason for admission Review of Systems Review of Systems: All systems reviewed & are unremarkable except as noted in HPI and below Exam Narrative: Neuro: awake, alert and oriented to self only, speech is soft but clear, no focal neuro deficits noted, able to follow commands HEENMT: normocephalic, atraumatic, EOMI, bilateral scleral hemorrhage Neck: supple, no lymphadenopathy Respiratory: clear to auscultation bilaterally, nonlabored breathing Cardio: regular rate, regular rhythm with S1-S2 Abdomen: nondistended, normoactive bowel sounds, soft, nontender to palpation Extremities: no edema, erythema, or tenderness to palpation, DP pulses 2+ bilaterally Skin: no rashes or lesions, warm and dry Psych: Cooperative, confused, judgment and insight poor Objective Data Vital Signs Vital Signs: Vital Signs - 24 hr 10/15/21 16:00 10/15/21 20:56 10/16/21 00:00 Temperature 36.6 C 36.2 C L 36.4 C Pulse Rate 80 65 78 Respiratory Rate 16 20 20 Blood Pressure 121/77 129/72 123/74 Pulse Oximetry 100 100 100 10/16/21 04:31 Temperature 36.2 C L Pulse Rate 74 Respiratory Rate 20 Blood Pressure 124/71 Pulse Oximetry 100 Intake/Output Intake/Output: Intake & Output 10/13
[2021-10-16 13:52] LABS: Vitamin D 25 Hydroxy < 12.8 ng/mL
[2021-10-16 14:00] VITALS: BP 138/92; PULSE 70; RESP 15; TEMP 36.6; O2SAT 100
[2021-10-16 20:27] VITALS: BP 137/90; PULSE 64; RESP 17; TEMP 37.1; O2SAT 100
[2021-10-17 00:39] VITALS: O2SAT 99
[2021-10-17 03:48] VITALS: BP 131/77; PULSE 69; RESP 17; TEMP 36.5; O2SAT 100
[2021-10-17 06:03] LABS: Hematocrit 44.5 % (42.0-52.0); Hemoglobin 14.9 g/dL (14.0-18.0); Mean Corpuscular HGB Conc 33.5 g/dl (32-36); Mean Corpuscular Hemoglobin 32.3 pg (26-34); Mean Corpuscular Volume 96.5 fl (80-100); Mean Platelet Volume 10.8 fl (7.4-10.4); Platelet Count Result 165 k/mm3 (150-375); Red Blood Count 4.61 M/mm3 (4.6-6.20); Red Cell Distribution Width 12.1 % (11.5-14.5); White Blood Count 6.8 K/mm3 (4.5-10.0)
[2021-10-17 06:24] LABS: Anion Gap 5 mmol/L (8-16); Blood Urea Nitrogen 13 mg/dL (9-20); Calcium 8.8 mg/dL (8.4-10.2); Carbon Dioxide 21 mmol/L (22-30); Chloride 104 mmol/L (98-107); Estimated CRCL calculation 71 ml/min; Estimated Glomerular Filt Rate > 60; Glucose 95 mg/dL (65-110); Potassium 3.9 mmol/L (3.4-5.0); Sodium 130 mmol/L (137-145)
[2021-10-17] MEDS: ATORVASTATIN 20 MG TABLET PO (09:42)
[2021-10-17] MEDS: FAMOTIDINE 20 MG TABLET PO ×2 (09:42→21:30)
[2021-10-17] MEDS: ASPIRIN 325 MG TABLET PO (09:42)
[2021-10-17] MEDS: amLODIPine BESYLATE 5 MG TABLET 10 MG PO (09:42)
--- NOTE | 2021-10-17 12:34 | PM.IMPN ---
Progress Note: A&P Assessment and Plan (1) COVID-19: Code(s): U07.1 - COVID-19 Status: Acute Assessment and Plan: Positive COVID test on 10/14/2021 No evidence of pneumonia on CXR Continue isolation precautions No oxygen requirements. Not a candidate for dexamethasone or remdesivir Supportive care Unvaccinated (2) Altered mental status: Qualifiers: Altered mental status type: unspecified Qualified Code(s): R41.82 - Altered mental status, unspecified Code(s): R41.82 - Altered mental status, unspecified Status: Acute Assessment and Plan: His baseline unknown and medical history unobtainable on admission. ER documentation notes family reported history of stroke Head CT shows age indeterminate infarct of right caudate head with small old infarct MRI showed small old infarcts and Left frontal lobe small to moderate sized acute infarction with some other scattered smaller MCA distribution acute infarctions. Carotid doppler with <50% stenosis bilaterally Echocardiogram : LV chamber dimension is normal.EF 60-65%.moderately increased left ventricular wall thickness.LV diastolic function is grade I diastolic dysfunction.no aortic valve stenosis or regurgitation.no pulmonic regurgitation. no mitral valve stenosis or regurgitation.no tricuspid valve regurgitation.no pericardial effusion. Urine drug screen negative. Alcohol level negative. Checking ABG, HIV, hepatitis, Ferritin, vit D,lipids, TSH, ammonia, B12, folate levels today Appreciate neurology consult. EEG ordered Librium PRN, no s/s of DTs fall /aspiration precautions (3) Hypertension: Qualifiers: Hypertension type: unspecified Qualified Code(s): I10 - Essential (primary) hypertension Code(s): I10 - Essential (primary) hypertension Status: Acute Assessment and Plan: Stable Blood pressure has been elevated up to 200s systolic on admission ER documentation notes noncompliance with medication regimen. Suspect he has been off antihypertensives Continue Norvasc 5 mg daily Monitor (4) CVA (cerebral vascular accident): Code(s): I63.9 - Cerebral infarction, unspecified Status: Acute Assessment and Plan: Head CT shows age indeterminate infarct of right caudate head with small old infarct MRI showed small old infarcts and Left frontal lobe small to moderate sized acute infarction with some other scattered smaller MCA distribution acute infarctions Continue full dose ASA Statin initiated PT/OT Additional Plan Code status: FULL DVT Ppx: Subjective Date/time seen: 10/17/21 12:34 Interval history: 10/16 Pt seen and evaluated; labs, vs, diagnostic results reviewed; pt mental status improving; still does not reason for admission 10/17 Pt seen and evaluated; still some what confused; knows he's in the hospital but unsure which one or reason for admission even though reoriented yesterday Review of Systems Review of Systems: All systems reviewed & are unremarkable except as noted in HPI and below Exam Narrative: Neuro: awake, alert and oriented to self only, speech is soft but clear, no focal neuro deficits noted, able to follow commands HEENMT: normocephalic, atraumatic, EOMI, bilateral scleral hemorrhage Neck: supple, no lymphadenopathy Respiratory: nonlabored breathing, no dyspnea Cardio: regular rate, regular rhythm with S1-S2 Abdomen: nondistended, normoactive bowel sounds, soft, nontender to palpation Extremities: no edema, erythema, or tenderness to palpation, DP pulses 2+ bilaterally Skin: no rashes or lesions, warm and dry Psych: Cooperative, confused, judgment and insight poor Objective Data Vital Signs Vital Signs: Vital Signs - 24 hr 10/16/21 14:00 10/16/21 20:27 10/17/21 00:39 Temperature 36.6 C 37.1 C Pulse Rate 70 64 Respiratory Rate 15 17 Blood Pressure 138/92 H 137/90 Pulse Oximetry 100 100 99 10/17/21 03:48 Temperature 36.5 C Pulse Rate 69
[2021-10-17 15:30] VITALS: BP 138/79; PULSE 68; RESP 16; TEMP 36.4; O2SAT 100
[2021-10-17 19:49] VITALS: BP 124/76; PULSE 79; RESP 7; TEMP 37; O2SAT 94
[2021-10-18 04:27] VITALS: BP 129/78; PULSE 61; RESP 18; TEMP 36.2; O2SAT 100
[2021-10-18 06:47] LABS: Hematocrit 42.7 % (42.0-52.0); Hemoglobin 14.7 g/dL (14.0-18.0); Mean Corpuscular HGB Conc 34.4 g/dl (32-36); Mean Corpuscular Hemoglobin 32.4 pg (26-34); Mean Corpuscular Volume 94.1 fl (80-100); Platelet Count Result 171 k/mm3 (150-375); Red Blood Count 4.54 M/mm3 (4.6-6.20); White Blood Count 6.7 K/mm3 (4.5-10.0)
[2021-10-18 07:05] LABS: Anion Gap 4 mmol/L (8-16); Blood Urea Nitrogen 15 mg/dL (9-20); Calcium 8.7 mg/dL (8.4-10.2); Carbon Dioxide 24 mmol/L (22-30); Chloride 104 mmol/L (98-107); Estimated CRCL calculation 65 ml/min; Estimated Glomerular Filt Rate > 60; Glucose 91 mg/dL (65-110); Potassium 3.8 mmol/L (3.4-5.0); Sodium 132 mmol/L (137-145)
[2021-10-18] MEDS: ASPIRIN 325 MG TABLET PO (09:55)
[2021-10-18] MEDS: FAMOTIDINE 20 MG TABLET PO (09:55)
[2021-10-18] MEDS: amLODIPine BESYLATE 5 MG TABLET 10 MG PO (09:55)
[2021-10-18] MEDS: CHOLECALCIFEROL 1,000 UNITS TABLET 1000 UNITS PO (09:55)
[2021-10-18] MEDS: ATORVASTATIN 20 MG TABLET PO (09:55)
--- NOTE | 2021-10-18 12:56 | WPDNEUROPN ---
Progress Note: A&P Additional Plan 1. COVID with mild encephalopathy but no focal neurological deficit to consider the ongoing encephalopathy 2. left frontal lobe small to moderate-sized acute infarction in the distribution of the MCA in addition to old infarction as well patient will be continued on aspirin 81 mg daily and Plavix 75 mg daily for 3 weeks but aspirin will be continued as such he will be followed by the physician Time Spent With Patient Time with patient: less than 15 minutes Subjective Date/time seen: 10/18/21 12:56 61 years old right-handed male admitted to the hospital through emergency room for the complaints of not acting right with increasing confusion over the last 5 days additionally found to have COVID positive, he had with no bleed but left frontal lobe encephalomalacia and right caudate hypodensity in addition to history of underlying hypertension, MRI of the brain documented left frontal lobe small to moderate size acute infarction is scattered small middle cerebral artery distribution acute infarction as well in addition to the old small infarction, the carotid studies revealed less than 50% stenosis by ultrasound bilaterally, chest x-ray negative and routine studies unrewarding except SARS-CoV-2 positive Review of Systems Review of Systems: All systems reviewed & are unremarkable except as noted in HPI and below Exam Narrative: revealed him to be awake alert cooperative neck is supple with no cervical bruit no thyromegaly no lymphadenopathy heart regular lungs clear abdomen is soft and neurologically normal mental status normal speech the cranial examination normal motor and sensory exam normal reflexes symmetrical plantars downgoing Objective Data Vital Signs Vital Signs: Vital Signs - 24 hr 10/17/21 15:30 10/17/21 19:49 10/18/21 04:27 Temperature 36.4 C L 37.0 C 36.2 C L Pulse Rate 68 79 61 Respiratory Rate 16 7 L 18 Blood Pressure 138/79 124/76 129/78 Pulse Oximetry 100 94 100 Intake/Output Intake/Output: Intake & Output 10/15/21 10/16/21 10/17/21 10/18/21 23:59 23:59 23:59 23:59 Intake Total 780 1410 970 640 Output Total 045 241 8483 600 Balance 230 610 -255 40 Meds/Results Medications: Active Medications Generic Name Dose Route Start Last Admin Trade Name Freq PRN Reason Stop Dose Admin Acetaminophen 650 mg 10/14/21 10:31 Acetaminophen 325 Mg Tablet PO Q4H PRN Headache, mild pain 1-3, fever Albuterol 2 puff 10/14/21 10:36 Albuterol Sulfate (*Sp) Aerosol 1 Puff INHALATION Q6HRT PRN Shortness Of Breath Amlodipine Besylate 10 mg 10/15/21 09:00 10/18/21 09:55 Amlodipine Besylate 5 Mg Tablet PO 10 mg QAM SEGUN Administration Aspirin 325 mg 10/15/21 08:00 10/18/21 09:55 Aspirin 325 Mg Tablet PO 325 mg DAILY@0800 SEGUN Administration Atorvastatin Calcium 20 mg 10/17/21 09:00 10/18/21 09:55 Atorvastatin 20 Mg Tablet PO 20 mg DAILY SEGUN Administration Chlordiazepoxide HCl 5 mg 10/14/21 14:56 Chlordiazepoxide (*Crx) 5 Mg Capsule PO Q8H PRN Anxiety Famotidine 20 mg 10/14/21 11:00 10/18/21 09:55 Famotidine 20 Mg Tablet PO 20 mg Q12HR SEGUN Administration Vitamin D 1,000 units 10/18/21 09:00 10/18/21 09:55 Cholecalciferol 1,000 Units Tablet PO 1,000 units DAILY SEGUN Administration Radiology Results: ITS Impressions Head CT 10/14/21 07:56 IMPRESSION: 1. Right caudate head, internal capsular age-indeterminate infarction. 2. Small old infarctions. 3. Chronic age related findings. Chest X-Ray 10/14/21 08:00 IMPRESSION: No acute cardiopulmonary findings. Carotid Doppler Study 10/14/21 08:58 IMPRESSION: 1. <50% stenosis in the right internal carotid artery. 2. <50% stenosis in the left internal carotid artery. Brain MRI 10/14/21 14:14 IMPRESSION: 1. Left frontal lobe small to moderate sized acute infarction with some other scattered smaller M
--- NOTE | 2021-10-18 13:15 | P.DS_ITS ---
DS: Admitting Diagnosis Discharge Date 10/18/2021 Admitting Diagnosis Altered mental status DS: Discharge Diagnosis Discharge Diagnosis (1) CVA (cerebral vascular accident): Code(s): I63.9 - Cerebral infarction, unspecified Status: Acute Assessment and Plan: Presented with change in mental status for 5 days * Head CT showed age indeterminate infarct of right caudate head with small old infarct * MRI showed left frontal lobe small to moderate sized acute infarction with some other scattered smaller MCA distribution acute infarctions as well as evidence of old small infarctions * Carotid Doppler with <50% stenosis bilaterally * Echocardiogram reviewed which showed normal EF with grade 1 diastolic dysfunction and no significant valvular disease * He was seen in consultation by Neurology * Aspirin 81 mg daily * Plavix 75 mg daily for 3 weeks * High-intensity statin * Follow-up with primary care provider. Consider outpatient environmental monitoring specialist * Lifestyle modifications discussed. Dietary modifications and increased exercise. Smoking cessation is imperative. A1c 5.2, patient not diabetic. * 10 year ASCVD risk score is 23%, indicating high risk * Participated in PT/OT and was consistent with his prior level of function. He had no focal neurologic deficits. (2) COVID-19: Code(s): U07.1 - COVID-19 Status: Acute Assessment and Plan: Positive COVID test on 10/14/2021 * No evidence of pneumonia on CXR * He was asymptomatic. He had no oxygen requirements, therefore not a candidate for dexamethasone or remdesivir * Supportive care provided * Patient vaccinated for COVID-19. Follow-up with PCP to discuss vaccination * COVID precautions discussed (3) Altered mental status: Qualifiers: Altered mental status type: unspecified Qualified Code(s): R41.82 - Altered mental status, unspecified Code(s): R41.82 - Altered mental status, unspecified Status: Acute Assessment and Plan: His baseline unknown and medical history unobtainable on admission. * Laboratory workup with no abnormal findings * Likely related to acute CVA * Patient's exact alcohol intake is unclear he did report drinking daily. No evidence of alcohol withdrawal during admission and not felt to contribute to the patient's mental status. Alcohol level on presentation was negative (4) Hypertension: Qualifiers: Hypertension type: unspecified Qualified Code(s): I10 - Essential (primary) hypertension Code(s): I10 - Essential (primary) hypertension Status: Acute Assessment and Plan: Blood pressure was elevated on admission * Patient reportedly was off his medications and was noncompliant with his medication regimen * Perhaps uncontrolled BP contributed to acute CVA * Started on amlodipine which was up titrated to 10 mg daily with improved BP control * Continue amlodipine daily * Monitor BP as an outpatient and follow-up with PCP for blood pressure check (5) Tobacco abuse: Code(s): Z72.0 - Tobacco use Status: Acute Assessment and Plan: Patient was educated on smoking cessation. DS: Summary Hospital Course Hospital Course: Date of admission: 10/14/2021 Date of discharge: 10/18/2021 Jean Pierre Fitch Sr is a 61-year-old male with history of tobacco abuse, hypertension, and noncompliance to medication regimen who presented to the ER on 10/14/2021. He was brought in by his sister who states he had not been acting like his typical self. He was admitted
--- NOTE | 2021-10-18 13:15 | PM.DS ---
DS: Admitting Diagnosis Discharge Date 10/18/2021 Admitting Diagnosis Altered mental status DS: Discharge Diagnosis Discharge Diagnosis (1) CVA (cerebral vascular accident): Code(s): I63.9 - Cerebral infarction, unspecified Status: Acute Assessment and Plan: Presented with change in mental status for [address] showed age indeterminate infarct of right caudate head with small old infarct MRI showed left frontal lobe small to moderate sized acute infarction with some other scattered smaller MCA distribution acute infarctions as well as evidence of old small infarctions Carotid Doppler with <50% stenosis bilaterally Echocardiogram reviewed which showed normal EF with grade 1 diastolic dysfunction and no significant valvular disease He was seen in consultation by Neurology Aspirin 81 mg daily Plavix 75 mg daily for 3 weeks High-intensity statin Follow-up with primary care provider. 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 Dietary modifications and increased exercise. Smoking cessation is imperative. A1c 5.2, patient not diabetic. 10 year ASCVD risk score is 23%, indicating high risk Participated in PT/OT and was consistent with his prior level of function. He had no focal neurologic deficits. (2) COVID-19: Code(s): U07.1 - COVID-19 Status: Acute Assessment and Plan: Positive COVID test on 10/14/2021 No evidence of pneumonia on CXR He was asymptomatic. He had no oxygen requirements, therefore not a candidate for dexamethasone or remdesivir Supportive care provided Patient vaccinated for COVID-19. Follow-up with PCP to discuss vaccination COVID precautions discussed (3) Altered mental status: Qualifiers: Altered mental status type: unspecified Qualified Code(s): R41.82 - Altered mental status, unspecified Code(s): R41.82 - Altered mental status, unspecified Status: Acute Assessment and Plan: His baseline unknown and medical history unobtainable on admission. Laboratory workup with no abnormal findings Likely related to acute CVA Patient's exact alcohol intake is unclear he did report drinking daily. No evidence of alcohol withdrawal during admission and not felt to contribute to the patient's mental status. Alcohol level on presentation was negative (4) Hypertension: Qualifiers: Hypertension type: unspecified Qualified Code(s): I10 - Essential (primary) hypertension Code(s): I10 - Essential (primary) hypertension Status: Acute Assessment and Plan: Blood pressure was elevated on admission Patient reportedly was off his medications and was noncompliant with his medication regimen Perhaps uncontrolled BP contributed to acute CVA Started on amlodipine which was up titrated to 10 mg daily with improved BP control Continue amlodipine daily Monitor BP as an outpatient and follow-up with PCP for blood pressure check (5) Tobacco abuse: Code(s): Z72.0 - Tobacco use Status: Acute Assessment and Plan: Patient was educated on smoking cessation. DS: Summary Hospital Course Hospital Course: Date of admission: 10/14/2021 Date of discharge: 10/18/2021 Jean Pierre Fitch Sr is a 61-year-old male with history of tobacco abuse, hypertension, and noncompliance to medication regimen who presented to the ER on 10/14/2021. He was brought in by his sister who states he had not been acting like his typical self. He was admitted to the hospitalist service for further evaluation management was seen in consultation by Neurology. Found have acute CVA. Please see above for further details. He had no focal deficits plan returned to his baseline state of health. He was discharged home where he will be staying with his sister. I spoke with his sister on the phone to review the patient's hospital course and discharge instructions. Discussed with both patient
[2021-10-18 14:52] VITALS: BP 134/87; PULSE 71; RESP 16; TEMP 36.3; O2SAT 100
[2021-10-20 13:10] LABS: Red Blood Cell Folate 309 ng/mL RBC (>280)
== END 2021-10-18 16:20 | disposition home or self-care (01) | DRG 45 ==
LOC: ANHED 04:39 → ANHIMU 05:26 → ANH2MED 10-16 00:26 → ANHIMU 10-22 12:03
PROVIDERS: Nurse Practitioner; Nurse Practitioner Adult Health; Admitting Provider Internal Medicine; Emergency Provider Emergency Medicine; Visit Provider Physician Assistant
DX: I63.9 Cerebral infarction, unspecified (principal); R41.82 Altered mental status, unspecified; U07.1 COVID-19; G93.49 Other encephalopathy; I10 Essential (primary) hypertension; F17.210 Nicotine dependence, cigarettes, uncomplicated; Z91.14 Patient's other noncompliance with medication regimen
CPT/HCPCS: 36415; 36600; 70450; 70553; 71045; 80048; 80053; 80061; 80074; 80307; 81001; 82140; 82306; 82607; 82728; 82747; 82805; 83036; 83605; 83615; 83690; 83735; 83880; 84443; 84484; 85025; 85027; 85610; 85730; 86140; 86703; 93005; 93306; 93880; 96361; 96374; 96376; 97161; 97165; 99285; A9270; A9577; C9803; G0378; G0432; J0360; J7030; U0003; U0005